=== PATIENT | female | born 1995 | race Caucasian/White ===

== ENCOUNTER 2016-04-06 08:34 | Outpatient (CLI) | payer OTHER, BC ==
[~2016-04-06] VITALS: Ht 167.6 cm; Wt 63.5 kg
[2016-04-06] MEDS ORDERED: TRIAMCINOLONE ACET (KENALOG-40) 40 MG/ML 1 ML VIAL ONE (08:37)
[2016-04-06] MEDS ORDERED: BUPIVACAINE 0.25% 30 ML (SENSORCAINE) VIAL ONE (08:37)
--- OUTSIDE RECORDS SUMMARY | 2016-04-06 08:37 | XMS REPORT | Continuity of Care Document ---
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 Medications No medication information available. Social History Social History Problem Response Recorded Date/Time Recent Foreign Travel No 03/09/2016 11:16am Recent Infectious Disease Exposure No 03/09/2016 11:16am Hospital Discharge Instructions No hospital discharge instructions. Plan of Care Discharge Date 03/09/16 11:49am Instructions/Education Provided DR. ORTIZ-POST EPIDURAL INST Prescriptions See Medication Section Functional Status No functional status results. Allergies, Adverse Reactions, Alerts No allergy information available. Immunizations No immunization records. Vital Signs Acute Vital Signs Vital Response Date/Time Temperature (Fahrenheit) 98.3 degrees F (97.6 - 99.5) 03/09/2016 11:17am Temperature (Calculated Celsius) 36.08415 degrees C (36.4 - 37.5) 03/09/2016 11:17am Temperature Source Tympanic 03/09/2016 11:17am Pulse Rate (adult) 70 bpm (60 - 90) 03/09/2016 11:49am Respiratory Rate 17 bpm (12 - 24) 03/09/2016 11:17am O2 Sat by Pulse Oximetry 99 % (88 - 100) 03/09/2016 11:17am Blood Pressure 113/66 mm Hg 03/09/2016 11:49am Blood Pressure Mean 82 mm Hg 03/09/2016 11:49am Pain Numeric Pain Scale 3 03/09/2016 11:49am Height (Feet) 5 feet 03/09/2016 11:21am Height (Inches) 6.00 inches 03/09/2016 11:21am Height (Calculated Centimeters) 167.243547 cm 03/09/2016 11:21am Weight (Pounds) 140 pounds 03/09/2016 11:21am Weight (Ounces) 0.0 oz 03/09/2016 11:21am Weight (Calculated Grams) 15391.93 gm 03/09/2016 11:21am Weight (Calculated Kilograms) 63.345847 kilograms 03/09/2016 11:21am Calculated BMI 22.6 03/09/2016 11:21am Results No known relevant diagnostic tests, laboratory data and/or discharge summary. Procedures No known history of procedures. Encounters Encounter Location Arrival/Admit Date Discharge/Depart Date Attending Provider Departed Clinic [facility] 03/09/16 11:02am 03/09/16 11: 49am KAMARI ORTIZ MD
[2016-04-06 08:48] VITALS: BP 119/66
[2016-04-06 09:06] VITALS: BP 121/82
--- NOTE | 2016-04-06 13:20 | Pain Medicine-Procedure ---
Procedure Pre-Op/Post-Op Diagnosis Diagnosis: disc disorder with radiculopathy, lumbar Indications for Operation Low back pain Attending Surgeon Leigh Procedure Date of Service: Apr 06, 2016 Procedure: Lumbar Epidural Steroid Injection at the L5-S1 level under Fluoroscopic Guidance Procedure: Patient was identified in the holding area. After risks, benefits, and alternatives were discussed with the patient, informed consent was obtained. Patient was brought to the fluoroscopy suite and placed prone on the procedure room table. A time out was performed. Vital signs were monitored throughout the procedure. The patients low back was prepped and draped in the usual sterile fashion. The patients skin was anesthetized using 2% Lidocaine. A Tuohy needle was inserted and advanced to the L5-S1 epidural space under fluoroscopic guidance using the loss of resistance technique and intermittent projection of fluoroscopy. There was no paresthesia with needle placement. The needle position was confirmed in both the AP and lateral view. After negative aspiration 2ml of contrast was injected under live fluoroscopy which showed good spread of the contrast in the epidural space at the appropriate level, there was no intravascular or subarachnoid spread. Again, after negative aspiration for heme or CSF, 2 ml of 0.25% Bupivicaine, 2ml of preservative free normal saline, and 80mg of Kenalog was injected. The needle was removed and a sterile bandage was placed and the patient was transferred to the recovery area in stable condition. After a brief period of observation, patient was discharged to home with no new neurological deficits and no apparent complications. Complications None KAMARI ORTIZ MD Apr 06, 2016 1:20 pm
== END 2016-04-06 09:21 ==
LOC: CARD 08:34
PROVIDERS: ATTEND Pain Medicine Pain Medicine
DX: M51.16 Intervertebral disc disorders with radiculopathy, lumbar region (principal)
CPT/HCPCS: 62323